=== PATIENT | male | born 1990 | race Caucasian/White ===

== ENCOUNTER → 2020-11-15 10:32 | Outpatient (CLI) | payer OTHER, SELFPAY ==
[2020-11-17 06:28] LABS: RPR Screen Non Reactive (Non Reactive)
[2020-11-18 02:36] LABS: Chlamydia trachomatis NAA Negative (Negative); Neisseria gonorrhoeae NAA Negative (Negative)
[2020-11-18 16:21] LABS: HIV 1 & 2 Ab/Ag 4th Gen Combo NEGATIVE (NEGATIVE); Hep C Virus Ab w/Reflex Quant NEGATIVE s/c (NEGATIVE)
== END ==
PROVIDERS: PCP Family Medicine; Visit Provider Family Medicine
DX: Z11.3 Encounter for screening for infections with a predominantly sexual mode of transmission (principal); Z20.2 Contact with and (suspected) exposure to infections with a predominantly sexual mode of transmission
CPT/HCPCS: 86592; 86803; 87389; 87491; 87591

== ENCOUNTER → 2021-06-23 09:56 | Outpatient (CLI) | payer OTHER, SELFPAY ==
[2021-06-23 21:03] LABS: COVID19 - ORCAS (NP or Nasal) Negative (Negative)
== END ==
PROVIDERS: PCP Family Medicine; Referring Provider Family Medicine; Visit Provider Family Medicine
DX: Z20.822 Contact with and (suspected) exposure to COVID-19 (principal)
CPT/HCPCS: U0003

== ENCOUNTER → 2021-06-27 08:44 | Outpatient (CLI) | payer OTHER, SELFPAY ==
[2021-06-27 19:46] LABS: COVID19 - ORCAS (NP or Nasal) Negative (Negative)
== END ==
PROVIDERS: PCP Physician Assistant Medical; Visit Provider Physician Assistant Medical
DX: Z20.822 Contact with and (suspected) exposure to COVID-19 (principal)
CPT/HCPCS: U0003

== ENCOUNTER → 2022-02-05 09:27 | Outpatient (CLI) | payer OTHER, SELFPAY ==
[2022-02-05 21:29] LABS: HIV 1 & 2 Ab/Ag 4th Gen Combo NEGATIVE (NEGATIVE); Hep C Virus Ab w/Reflex Quant NEGATIVE s/c (NEGATIVE)
[2022-02-05 22:11] LABS: Urine N gonorrhoeae NOT DETECTED
[2022-02-05 22:19] LABS: Urine Chlamydia NOT DETECTED
[2022-02-06 08:34] LABS: RPR Screen Non Reactive (Non Reactive)
[2022-02-06 20:35] LABS: HSV I/II IgM <0.91 Ratio (0.00-0.90)
== END ==
PROVIDERS: PCP Physician Assistant Medical; Visit Provider Physician Assistant Medical
DX: Z11.3 Encounter for screening for infections with a predominantly sexual mode of transmission (principal); Z20.2 Contact with and (suspected) exposure to infections with a predominantly sexual mode of transmission
CPT/HCPCS: 86592; 86694; 86803; 87389; 87491; 87591

== ENCOUNTER → 2022-04-08 10:56 | Outpatient (CLI) | payer OTHER, SELFPAY ==
[2022-04-08 23:28] LABS: Urine N gonorrhoeae NOT DETECTED
[2022-04-08 23:45] LABS: Urine Chlamydia NOT DETECTED
[2022-04-09 16:16] LABS: HIV 1 & 2 Ab/Ag 4th Gen Combo NEGATIVE (NEGATIVE); Hep C Virus Ab w/Reflex Quant NEGATIVE s/c (NEGATIVE)
[2022-04-10 05:40] LABS: HSV 2 IGG AB < 0.91 index (0.00-0.90)
[2022-04-10 07:15] LABS: RPR Screen Non Reactive (Non Reactive)
== END ==
PROVIDERS: PCP Physician Assistant Medical; Visit Provider Physician Assistant Medical
DX: Z11.3 Encounter for screening for infections with a predominantly sexual mode of transmission (principal); Z20.2 Contact with and (suspected) exposure to infections with a predominantly sexual mode of transmission
CPT/HCPCS: 86592; 86695; 86696; 86803; 87389; 87491; 87591

== ENCOUNTER → 2023-02-03 12:59 | Outpatient (CLI) | payer OTHER, SELFPAY ==
[2023-02-03 21:01] LABS: Add Manual Diff / Slide Review NO; Basophils Absolute Auto 0 /uL (0-100); Basophils Percent Auto 0.3 % (0-2); Eosinophils Absolute Auto 0 /uL (0-450); Eosinophils Percent Auto 0.7 % (2-4); Hematocrit 41.8 % (41-53); Hemoglobin 14.5 g/dL (13.5-17.5); Lymphocytes Absolute Auto 1900 /uL (1100-4500); Lymphocytes Percent Auto 33.4 % (25-40); Mean Corpuscular HGB Conc 34.6 % (30-36); Mean Corpuscular Hemoglobin 31.3 PG (26-34); Mean Corpuscular Volume 90.4 fL (80-100); Monocytes Absolute Auto 600 /uL (0-900); Neutrophils Absolute Auto 3200 /uL (1500-7000); Neutrophils Percent Auto 55.6 % (50-75); Platelet Count 318 X10^3/uL (150-400); Red Blood Cell Count 4.62 X10^6/uL (4.5-5.9); Red Cell Distribution Width 14.4 % (11.6-14.8); White Blood Cell Count 5.8 X10^3/uL (4.5-11.0)
[2023-02-03 21:21] LABS: Alanine Aminotransferase 31 IU/L (<50); Albumin 4.3 g/dL (3.5-5.0); Albumin Globulin Ratio 1.2 (1.0-2.8); Alkaline Phosphatase 64 U/L (38-126); Aspartate Aminotransferase 30 IU/L (17-59); BUN Creatinine Ratio 18.8 (6-22); Bilirubin Total 0.6 mg/dL (0.2-1.3); Blood Urea Nitrogen 21 mg/dL (9-20); Calcium 9.3 mg/dL (8.4-10.2); Carbon Dioxide 28 mmol/L (22-32); Chloride 98 mmol/L (98-107); Estimated Glomerular Filt Rate > 60 mL/min (>60); Globulin 3.5 g/dL (1.7-4.1); Glucose 81 mg/dL (70-100); HEMOLYSIS < 15 (0-50); Potassium 4.4 mmol/L (3.4-5.1); Sodium 134 mmol/L (137-145); Total Protein 7.8 g/dL (6.3-8.2)
[2023-02-03 21:44] LABS: TSH w/ Reflex to FT4 0.96 uIU/mL (0.47-4.68)
== END ==
PROVIDERS: PCP Physician Assistant Medical; Visit Provider Physician Assistant Medical
DX: F41.9 Anxiety disorder, unspecified (principal)
CPT/HCPCS: 80053; 84443; 85025